=== PATIENT | female | born 1950 | race Caucasian/White ===

== ENCOUNTER 2018-02-15 19:30 | Outpatient (CLI) | payer MEDICARE, BC | END 2018-02-15 19:31 | disposition home or self-care (01) | LOC: SLEEPLAB 19:30 | PROVIDERS: ATTEND Nurse Practitioner | DX: G47.33 Obstructive sleep apnea (adult) (pediatric) (principal); R06.83 Snoring; R53.83 Other fatigue; F32.9 Major depressive disorder, single episode, unspecified; Z68.28 Body mass index [BMI] 28.0-28.9, adult | CPT/HCPCS: 95810 ==

== ENCOUNTER 2018-03-04 19:30 | Outpatient (CLI) | payer MEDICARE, BC | END 2018-03-04 19:31 | disposition home or self-care (01) | LOC: SLEEPLAB 19:30 | PROVIDERS: ATTEND Nurse Practitioner | DX: G47.33 Obstructive sleep apnea (adult) (pediatric) (principal); R53.83 Other fatigue; F32.9 Major depressive disorder, single episode, unspecified; R06.83 Snoring; G47.10 Hypersomnia, unspecified; E66.9 Obesity, unspecified; Z68.28 Body mass index [BMI] 28.0-28.9, adult | CPT/HCPCS: 95811 ==

== ENCOUNTER → 2020-05-15 | Day surgery (SDC) | payer MEDICARE, BC ==
--- NOTE | 2020-05-15 10:55 | MMO ---
LEFT BREAST STEREOTACTIC BIOPSY AND SURGICAL SPECIMEN AND POST BIOPSY MAMMOGRAM: COMPARISON: 04/25/2020 and 03/28/2020. FINDINGS: Successful left breast stereotactic biopsy. Calcifications are present in the biopsy sample. TECHNIQUE: Consent was obtained to perform a left breast stereotactic biopsy. The left breast was prepped and d raped in a sterile fashion. 1% Lidocaine, buffered with sodium bicarbonate, was used for local anest hesia. Calcifications were identified on the CC projection. Needle position was confirmed pre- and post firing with respect to the calcifications. A total of six 10-gauge core biopsy samples were obt ained. There are no immediate or post procedure complications. SPECIMEN RADIOGRAPH: Calcifications are present. POST BIOPSY MAMMOGRAM: There is a biopsy clip. On the CC projection, the clip is just posterior to the biopsy site. On the MLO projection, the clip is inferior to the biopsy site by approximately 3 cm. IMPRESSION: Successful left breast stereotactic biopsy. POS: OFF
== END ==
LOC: MAMMO 06:57
PROVIDERS: ATTEND Nurse Practitioner
PROC: 0H9U0ZX Drainage of Left Breast, Open Approach, Diagnostic (ICD-10-PCS; principal; 2020-05-15)
DX: D24.2 Benign neoplasm of left breast (principal)
CPT/HCPCS: 19081; 76098; 88305

== ENCOUNTER 2021-04-26 10:24 | Outpatient (CLI) | payer MEDICARE | END 2021-04-26 10:25 | disposition home or self-care (01) | LOC: BICMAMMO 10:24 | PROVIDERS: ATTEND Nurse Practitioner | DX: Z12.31 Encounter for screening mammogram for malignant neoplasm of breast (principal); Z91.89 Other specified personal risk factors, not elsewhere classified | CPT/HCPCS: 77063; 77067 ==

== ENCOUNTER 2023-07-18 11:28 | Outpatient (CLI) | payer MEDICARE | END 2023-07-18 11:29 | disposition home or self-care (01) | LOC: BICMAMMO 11:28 | PROVIDERS: ATTEND Nurse Practitioner | DX: Z12.31 Encounter for screening mammogram for malignant neoplasm of breast (principal); Z98.890 Other specified postprocedural states | CPT/HCPCS: 77063; 77067 ==